=== PATIENT | male | born 1945 | race Caucasian/White ===

== ENCOUNTER 2023-02-07 13:56 | Day surgery (SDC) | payer MEDICARE, OTHER ==
[2023-02-07] MEDS ORDERED: LIDOCAINE HCL 1% 50 MG/5 ML VL PF IJ ONE (13:57)
[2023-02-07] MEDS ORDERED: BUPIVACAINE 0.5% VIAL IJ ONE (13:57)
[2023-02-07] MEDS ORDERED: Depo-Medrol 40 MG/ML IM ONE (13:57)
[2023-02-07 15:30] LABS: INR 2.07 (0.8-3.0); PROTIME 21.4 SECONDS (9.4-12.5)
--- NOTE | 2023-02-08 08:40 | XRAY ---
Indication: Right shoulder and subacromial bursa injection. Intraoperative fluoroscopy provided for 19 seconds. 2 digital spot images submitted for interpretation demonstrates needle tip projecting over right glenohumeral joint superiorly. Second needle tip subacromial. Small amount of contrast injected for needle tip placement. Correlate with intraoperative findings/report.
--- NOTE | 2023-02-08 09:08 | XRAY ---
19 seconds of fluoroscopy was used in surgery for a right intra-articular shoulder and subacromial bursa injection.
== END 2023-02-07 16:42 | disposition home or self-care (01) ==
LOC: SDC-PAIN 13:56
PROVIDERS: ATTEND Psychiatry & Neurology Pain Medicine
DX: M19.011 Primary osteoarthritis, right shoulder (principal); M75.51 Bursitis of right shoulder; Z79.899 Other long term (current) drug therapy; Z79.01 Long term (current) use of anticoagulants
CPT/HCPCS: 20610; 36415; 73030; 77002; 85610; J1030; J2001; Q9966

== ENCOUNTER 2023-07-18 08:57 | Day surgery (SDC) | payer MEDICARE, OTHER ==
[2023-07-18] MEDS ORDERED: Depo-Medrol 40 MG/ML IM ONE (08:58)
[2023-07-18] MEDS ORDERED: BUPIVACAINE 0.5% VIAL IJ ONE (08:58)
[2023-07-18] MEDS ORDERED: XYLOCAINE-MPF 1% 5ML SDV IJ ONE (08:58)
[2023-07-18 09:52] LABS: INR 1.76 (0.8-3.0); PROTIME 18.5 SECONDS (9.4-12.5)
--- NOTE | 2023-07-18 12:09 | XRAY ---
Indication: Right shoulder and subacromial bursa injection. Intraoperative fluoroscopy was provided for 16 seconds. 2 digital spot image submitted for interpretation demonstrates needle tip projecting over the right glenohumeral joint superiorly. Second needle tip subacromial. Small amount of contrast injected for needle tip placement. Correlate with intraoperative findings/report.
--- NOTE | 2023-07-18 13:19 | XRAY ---
16 seconds of fluoroscopy was used in surgery for a right intra-articular shoulder and subacromial bursa injection.
== END 2023-07-18 11:25 | disposition home or self-care (01) ==
LOC: SDC-PAIN 08:57
PROVIDERS: ATTEND Psychiatry & Neurology Pain Medicine
DX: M19.011 Primary osteoarthritis, right shoulder (principal); Z79.01 Long term (current) use of anticoagulants
CPT/HCPCS: 20610; 36415; 73030; 77002; 85610; J1030; Q9966

== ENCOUNTER 2024-01-09 15:16 | Day surgery (SDC) | payer MEDICARE, OTHER ==
[2024-01-09] MEDS ORDERED: LIDOCAINE HCL 1% 50 MG/5 ML VL PF IJ ONE (15:17)
[2024-01-09] MEDS ORDERED: BUPIVACAINE 0.5% VIAL IJ ONE (15:17)
[2024-01-09] MEDS ORDERED: Depo-Medrol 40 MG/ML IM ONE (15:17)
[2024-01-09 15:40] LABS: INR 1.54 (0.8-3.0); PROTIME 16.3 SECONDS (9.4-12.5)
--- NOTE | 2024-01-09 19:17 | XRAY ---
Indication: Right shoulder and subacromial bursa injection. Intraoperative fluoroscopy provided for 12 seconds. 3 digital spot image submitted for interpretation demonstrates needle tip projecting over right glenohumeral joint superiorly. Second needle tip subacromial. Small amount of contrast injected for needle tip placement.. Correlate with intraoperative findings/report.
--- NOTE | 2024-01-10 08:51 | XRAY ---
12 seconds of fluoroscopy was used in surgery for a right intra-articular shoulder and subacromial bursa injection.
== END 2024-01-09 17:32 | disposition home or self-care (01) ==
LOC: SDC-PAIN 15:16
PROVIDERS: ATTEND Psychiatry & Neurology Pain Medicine
DX: M19.011 Primary osteoarthritis, right shoulder (principal); M75.51 Bursitis of right shoulder; Z79.01 Long term (current) use of anticoagulants
CPT/HCPCS: 20610; 36415; 73030; 77002; 85610; J2001; Q9966